=== PATIENT | female | born 1965 | race Two or more races ===

== ENCOUNTER 2022-06-15 18:43 | Emergency (ER) | payer MEDICAID ==
[~2022-06-15] VITALS: Ht 165.1 cm; Wt 87.5 kg
[2022-06-15 19:07] VITALS: BP 135/75
--- NOTE | 2022-06-15 19:22 | NUR ---
Patient discharged to home in stable condition. Written and verbal after care instructions given. Patient verbalizes understanding of instruction.
== END 2022-06-15 19:35 | disposition home or self-care (01) ==
LOC: ER 18:45
DX: K13.79 Other lesions of oral mucosa (principal)

== ENCOUNTER 2022-07-04 13:52 | Emergency (ER) | payer MEDICAID ==
[~2022-07-04] VITALS: Ht 167.6 cm; Wt 63.5 kg
[2022-07-04 14:11] VITALS: BP 112/70
--- NOTE | 2022-07-04 14:11 | NUR ---
BIBS C/O RIGHT RIB PAIN X5DAYS, PAIN IS 5/10 ON PAIN SCALE. AWAITNG MD HERNANDEZ.
[2022-07-04] MEDS ORDERED: CYCL5TAB PO (14:52)
[2022-07-04] MEDS ORDERED: KETO10TA2 PO (14:52)
[2022-07-04] MEDS ORDERED: KETOROLAC TROMETHAMINE INJ 30 MG/ML VIAL IM ONE (15:00)
[2022-07-04] MEDS ORDERED: CYCLOBENZAPRINE 10 MG TABLET PO ONE (15:00)
[2022-07-04] MEDS ORDERED: KETOROLAC TROMETHAMINE INJ 30 MG/ML VIAL ONE (15:06)
[2022-07-04] MEDS ORDERED: CYCLOBENZAPRINE 10 MG TABLET ONE (15:06)
== END 2022-07-04 15:39 | disposition home or self-care (01) ==
LOC: ER 13:54
DX: S29.011A Strain of muscle and tendon of front wall of thorax, initial encounter (principal); I10 Essential (primary) hypertension; E78.00 Pure hypercholesterolemia, unspecified; Z79.899 Other long term (current) drug therapy; W18.30XA Fall on same level, unspecified, initial encounter; Y93.89 Activity, other specified; Y92.89 Other specified places as the place of occurrence of the external cause; Y99.8 Other external cause status
CPT/HCPCS: 99283; 96372; J1885

== ENCOUNTER 2022-08-14 16:04 | Emergency (ER) | payer MEDICAID, OTHER ==
[~2022-08-14] VITALS: Ht 170.2 cm; Wt 63.5 kg
[~2022-08-14 16:04] MED LIST: CYCL5TAB PO; KETO10TA2 PO
[2022-08-14 16:38] VITALS: BP 124/77
[2022-08-14] MEDS ORDERED: ONDA4TAB5 PO (17:53)
[2022-08-14] MEDS ORDERED: ONDANSETRON 4 MG TAB.RAPDIS ONE (17:56)
--- NOTE | 2022-08-14 17:58 | NUR ---
Zofran given as ordered. Patient discharged to home in stable condition. Written and verbal after care instructions given. Patient verbalizes understanding of instruction.
[2022-08-14] MEDS ORDERED: ONDANSETRON 4 MG TAB.RAPDIS PO ONE (18:00)
== END 2022-08-14 17:59 | disposition home or self-care (01) ==
LOC: ER 16:15
DX: R11.10 Vomiting, unspecified (principal); I10 Essential (primary) hypertension; E78.00 Pure hypercholesterolemia, unspecified; Z79.899 Other long term (current) drug therapy
CPT/HCPCS: 99283; Q0162